=== PATIENT | male | born 1960 | race Caucasian/White ===

== ENCOUNTER 2016-10-10 15:53 | Observation (INO) | payer MEDICARE ==
[~2016-10-10] VITALS: Ht 170.2 cm; Wt 85.4 kg
[2016-10-10] MEDS ORDERED: NEURONTIN600 MG PO (16:24)
[2016-10-10] MEDS ORDERED: HYDRALAZINE HCL25 MG PO (16:24)
[2016-10-10] MEDS ORDERED: FUROSEMIDE20 MG PO (16:25)
[2016-10-10] MEDS ORDERED: NORVASC5 MG PO (16:26)
[2016-10-10] MEDS ORDERED: HYDROCODON-ACE1 EAC9 PO (16:27)
[2016-10-10] MEDS ORDERED: TOUJEO SOL300 UNIT/1 SC (16:28)
[2016-10-10] MEDS ORDERED: METOPROLOL TART25 MG PO (16:32)
[2016-10-10] MEDS ORDERED: BAYER CHEWABLE81 MG PO (16:32)
[2016-10-10 17:20] VITALS: BP 171/82
[2016-10-10 17:24] LABS: HEMATOCRIT 38.8 % (42.0-54.0); HEMOGLOBIN 12.8 g/dL (13.5-17.5); MCH 28.4 pg (26.0-34.0); MEAN PLATELET VOLUME 11.1 fL (7.4-10.4); RBC 4.51 10x6/uL (4.20-6.10); RDW 13.3 % (11.5-14.5); WBC 2.8 10x3/uL (4.8-10.8)
[2016-10-10 17:25] LABS: PLATELET COUNT 124 10x3/uL (130-400)
[2016-10-10 17:47] LABS: ALBUMIN 3.7 g/dL (3.4-5.0); ANION GAP 16.2 mmol/L (8-16); BILIRUBIN - TOTAL 0.3 mg/dL (0.2-1.3); CALCIUM 8.3 mg/dL (8.5-10.1); CARBON DIOXIDE 23.3 mmol/L (21.0-32.0); CREATININE - SERUM 3.8 mg/dL (0.6-1.3); POTASSIUM - SERUM 4.5 mmol/L (3.5-5.1)
[2016-10-10 17:53] LABS: EOSINOPHILS 10 % (0-7); LYMPHOCYTES 46 % (15-50); MONOCYTES 9 % (2-11); NEUTROPHILS 34 % (40-80); PLATELET ESTIMATE DECREASED
--- NOTE | 2016-10-10 18:21 | NUR ---
PT IN BED WITH AT BEDSIDE. IV TO RIGHT FA. PT EATING DINNER. WILL CONTINUE TO MONITOR
[2016-10-10 18:55] LABS: APPEARANCE CLEAR (CLEAR); BILIRUBIN NEGATIVE (NEGATIVE); COLOR YELLOW (YELLOW); GLUCOSE 50 mg/dL (NEGATIVE); KETONE NEGATIVE (NEGATIVE); LEUKOCYTE ESTERASE NEGATIVE (NEGATIVE); NITRITE NEGATIVE (NEGATIVE); PROTEIN 2+ mg/dL (NEGATIVE); SPECIFIC GRAVITY 1.015 (1.005-1.020); UROBILINOGEN NORMAL (NORMAL)
[2016-10-10 18:57] LABS: BACTERIA FEW /hpf (NONE SEEN); EPITHELIAL CELLS 0-5 /hpf (0-5); RED CELLS - URINE 0-5 /hpf (0-5); WHITE CELLS - URINE NSEEN /hpf (0-5)
[2016-10-10 20:00] VITALS: BP 152/59
--- NOTE | 2016-10-10 23:10 | NUR ---
NURSE ROUNDS 21:00 - PT LYING IN BED, AWAKE, ALERT, ORIENTED, DENIES ANY NEEDS. PT DENIES ANY DIARRHEA OR BM SINCE ADMISSION. PT DENIES ANY N/V SINCE ADMISSION. CONTINUE TO MONITOR CLOSELY. BED LOW, CALL LIGHT IN REACH, SIDE RAILS X 2, HOB 25 DEGREES.
--- NOTE | 2016-10-11 00:44 | NUR ---
PT RESTING COMFORTABLY, DENIES ANY NEEDS. CONTINUE TO MONITOR CLOSELY.
[2016-10-11 04:00] VITALS: BP 175/75
--- NOTE | 2016-10-11 07:28 | NUR ---
AM ROUNDS - PT IS AWAKE AND ALERT IN BED. PT STATES HE HAS A NON PRODUCTIVE COUGH. NON SKID SOCKS ON. CALL SANTO IN REACH. SIDE RAILS UP X2. IV IN RIGHT FA, D5 1/2 NS @ 100CC/HR. IV IS VERY POSITIONAL. MONITOR SHOWS SR, HR 56. PT IS ON RA. NO FUTHER NEEDS AT THIS TIME. WILL CONTINUE TO MONITOR
[2016-10-11 08:00] VITALS: BP 159/72
[2016-10-11 08:33] LABS: BASOPHILS 0.7 % (0-2); EOSINOPHILS 13.1 % (0-7); HEMATOCRIT 36.9 % (42.0-54.0); HEMOGLOBIN 12.2 g/dL (13.5-17.5); LYMPHOCYTES 36.4 % (15-50); MCH 28.2 pg (26.0-34.0); MCHC 33.1 g/dL (31.0-37.0); MCV 85.4 fL (80.0-100.0); MEAN PLATELET VOLUME 11.1 fL (7.4-10.4); MONOCYTES 13.4 % (2-11); NEUTROPHILS 36.4 % (40-80); PLATELET COUNT 129 10x3/uL (130-400); RBC 4.32 10x6/uL (4.20-6.10); RDW 13.1 % (11.5-14.5); WBC 3.1 10x3/uL (4.8-10.8)
[2016-10-11 08:53] LABS: ANION GAP 12.9 mmol/L (8-16); CALCIUM 7.8 mg/dL (8.5-10.1); CARBON DIOXIDE 23.5 mmol/L (21.0-32.0); CREATININE - SERUM 3.4 mg/dL (0.6-1.3); POTASSIUM - SERUM 4.4 mmol/L (3.5-5.1)
[2016-10-11 10:19] VITALS: Ht 170.2 cm; Wt 85.4 kg
[2016-10-11 11:14] LABS: ALBUMIN 3.3 g/dL (3.4-5.0); MAGNESIUM - SERUM 2.2 mg/dL (1.8-2.4)
[2016-10-11 11:27] LABS: COMPLEMENT C4 29.3 mg/dL (17.4-52.2)
[2016-10-11 11:40] LABS: BILIRUBIN - TOTAL 0.2 mg/dL (0.2-1.3); CHOL - HDL RATIO 3.6 ratio (2.3-4.9); LDL-HDL RATIO 1.9 ratio (1.5-3.5); PROTEIN - SERUM 6.9 g/dL (6.4-8.2)
[2016-10-11 12:00] VITALS: BP 166/69
[2016-10-11 12:28] LABS: PHOSPHOROUS 3.4 mg/dL (2.5-4.9)
--- NOTE | 2016-10-11 15:44 | NUR ---
SCD'S ON NANCY LE
[2016-10-11 16:00] VITALS: BP 181/76
--- NOTE | 2016-10-11 16:47 | NUR ---
1600 - SCDS PLACED ON PT.
[2016-10-11 16:52] LABS: CREATININE - URINE 40.7 mg/dL (30-125); POTASSIUM - URINE 16.2 MMOL/L (12.0-62.0); PROTEIN - URINE 233.1 mg/dL (0.0-11.9)
[2016-10-11 16:55] LABS: APPEARANCE CLEAR (CLEAR); BILIRUBIN NEGATIVE (NEGATIVE); COLOR YELLOW (YELLOW); GLUCOSE 100 mg/dL (NEGATIVE); KETONE NEGATIVE (NEGATIVE); LEUKOCYTE ESTERASE NEGATIVE (NEGATIVE); NITRITE NEGATIVE (NEGATIVE); PROTEIN 1+ mg/dL (NEGATIVE); UROBILINOGEN NORMAL (NORMAL)
--- NOTE | 2016-10-11 18:13 | NUR ---
PT IS IN RESTING IN BED. FINISHED DINNER. VISITOR AT BEDSIDE. PT HAD AN EPISODE OF NAUSEA EARLIER IN THE DAY, ZOFRAN GIVEN AND SUBSIDED. PT HAS NO NEEDS AT THIS TIME. WILL CONTINUE TO MONITOR
--- NOTE | 2016-10-11 18:50 | NUR ---
BLADDER SCAN SHOWS [id number].
--- NOTE | 2016-10-11 20:47 | NUR ---
PT AWAKE, ALERT, ORIENTED, STATES HIS NAUSEA IS IMPROVED AFTER PRN ZOFRAN AT SHIFT CHANGE. PT REQUESTING RED [place]O, WANTS HIS PRN RESTORIL, REFUSES PRN NORCO AT THIS TIME. CONTINUE TO MONITOR CLOSELY. BED LOW, CALL LIGHT IN REACH, SIDE RAILS X 2, HOB 30 DEGREES.
[2016-10-12] VITALS: BP 171/77
--- NOTE | 2016-10-12 01:35 | NUR ---
PT C/O RECURRENT NAUSEA, PRN ZOFRAN GIVEN. CONTINUE TO MONITOR.
[2016-10-12 04:00] VITALS: BP 167/68
[2016-10-12 07:00] LABS: BASOPHILS 0.9 % (0-2); HEMATOCRIT 34.8 % (42.0-54.0); HEMOGLOBIN 11.3 g/dL (13.5-17.5); LYMPHOCYTES 34.8 % (15-50); MCH 27.9 pg (26.0-34.0); MCHC 32.5 g/dL (31.0-37.0); MCV 85.9 fL (80.0-100.0); MEAN PLATELET VOLUME 11.4 fL (7.4-10.4); MONOCYTES 7.8 % (2-11); NEUTROPHILS 45.5 % (40-80); PLATELET COUNT 115 10x3/uL (130-400); RBC 4.05 10x6/uL (4.20-6.10); RDW 13.2 % (11.5-14.5); WBC 3.5 10x3/uL (4.8-10.8)
--- NOTE | 2016-10-12 07:00 | NUR ---
PT WAS RECEIVED AT THE BEGINNING OF THIS SHIFT IN BED ALERT AND ORIENTED X 4. PT. IS TALKING ABOUT BEING DISCHARGED TODAY. HE IS VERY ANXIOUS ABOUT LEAVING. VITAL SIGNS WNL. CALL LIGHT IN REACH. STABLE CONDITION.
[2016-10-12 07:04] LABS: ANION GAP 13.5 mmol/L (8-16); CALCIUM 7.3 mg/dL (8.5-10.1); CARBON DIOXIDE 22.9 mmol/L (21.0-32.0); CREATININE - SERUM 3.1 mg/dL (0.6-1.3); POTASSIUM - SERUM 4.4 mmol/L (3.5-5.1)
[2016-10-12 07:10] LABS: HEMOGLOBIN A1C 5.7 % (4.8-6.0)
[2016-10-12 08:00] VITALS: BP 179/72
--- NOTE | 2016-10-12 13:06 | NUR ---
PT WAS DISCHARGED AROUND 10:30AM. DISCHARGE PAPERWORK WAS SENT WITH HIM. STABLE CONDITION UPON LEAVING THE HOSPITAL.
--- NOTE | 2016-10-13 09:41 | DS ---
PATIENT:GERMAINE YAO :60 MEDICAL RECORD: [id number] DISCHARGE SUMMARY ADMISSION DATE: 10/10/16 DISCHARGE DATE: 10/12/16 DISCHARGE DIAGNOSES: Ygsyq-so-lkukxdc renal insufficiency stage IV, diabetes mellitus, diabetic retinopathy, diabetic papillopathy, anemia, thrombocytopenia, chronic sinusitis and vertigo due to diabetic neuropathy. HOSPITAL COURSE: A 55-year-old male admitted with significant dizziness, lightheadedness and fatigue. He has had not felt well for a week with upper respiratory symptoms with congestion and diarrhea 9-10 stools a day, which gradually improved without abdominal pain. ____ lightheaded. He denied any tick bites recently. His BUN and creatinine were elevated in the office creatinine over 3.5; baseline of 3.1. It was felt the patient with prerenal was very dizzy and ill-appearing. He was therefore admitted for IV fluids and further workup. On admission, blood pressure is 110/70, his heart rate was 90, and his temperature is 98.1. His sat was 90% on room air. White count was 2800, lymphocytic predominant platelet count 124,000, hemoglobin was 12.8. BUN and creatinine were 48 and 3.8. He was given IV fluids for hydration. Renal ultrasound was performed for his renal insufficiency. A bladder scan was performed. He had 199 cc noted on post-voiding residual. Renal ultrasound revealed slightly increased echogenicity of the renal cortical echotexture and the left ureteral jet could not be visualized easily, but no hydronephrosis was noted. 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 Sinus series showed mild chronic left maxillary sinusitis, but no air fluid level. The bone osseous survey was performed due to the findings with his left humerus. ____ impression that this was typically a bone infarct. This morning, the patient is improved. He is up in the room without dizziness. Blood pressure had been up slightly because he is agitated about being hospitalized. He demands hospital discharge today and promises to have followed up next week. This morning, his H&H is 11.3 and 34.8, white count is up to 3500, 45 neutrophils, 34.8 lymphocytes, and his platelet count is 115,000. BUN and creatinine are down to 40 and 3.1 his baseline. Blood sugars 158. Urine and blood cultures were negative at this time. Cholesterol is 151, triglycerides 149. Rest of his renal workup is pending. The patient will be discharged today in improving condition and to follow with Dr. Alvarado next Friday with a CBC and BMP and follow up with renal, which he agrees to do on an outpatient basis. DISCHARGE MEDICATIONS: Neurontin 600 mg b.i.d., Apresoline 25 mg b.i.d., Lasix 20 mg b.i.d., Norvasc 5 mg q.a.m., [place] 10/300 one t.i.d. p.r.n. back pain, Toujeo 20 units subQ q. evening, metoprolol tartrate 25 mg p.o. b.i.d. He will stop aspirin until his platelet count was resumed to normal. DIET: Renal ADA. ACTIVITY: Progress as tolerated. Return to clinic to see Dr. Alvarado on Friday with CBC, BMP and renal per their order. TRANSINT:[id number] Voice Confirmation ID: [id number] DOCUMENT ID: [id number] DISCHARGE SUMMARY REPORT [id number] GERMAINE YAO TIMOTHY MD at 0941 CC: [id number] DICTATION DATE: 10/12/16 1021 HOP STRAINER: 10/13/16226 DIS IN 10/12/16 [facility] [address] [place] [address]
--- NOTE | 2016-10-13 09:41 | HP ---
PATIENT: GERMAINE YAO MEDICAL RECORD: [id number] ACCOUNT: [id number] LOCATION:[address] : 60 ADMISSION DATE: 10/10/16 HISTORY AND PHYSICAL EXAMINATION REASON FOR ADMISSION: Fever and confusion. HISTORY OF PRESENT ILLNESS: The patient is a 55-year-old male, patient of Dr. Td Recinos, who states that he had not felt well for about a week. He had upper respiratory symptoms of sinus congestion with intermittent nasal drainage and mildly productive cough. He denied fever initially. He states that 3 days ago, he developed diarrhea, having 9 or 10 stools a day, which gradually improved without abdominal pain. He also complained of being very lightheaded when he would stand up. He had had some night sweats without documented fever. He came to the office for this reason today. He had not been in contact with anyone with infectious disease. He denies any recent tick bites. PAST MEDICAL HISTORY: Diabetes mellitus, essential hypertension, insomnia, COPD, was hospitalized in 2014 for acute renal insufficiency, history of class II CHF with EF of 50%, followed by DrVaughn ____, diabetic retinopathy, for which he is nearly blind, diabetic nephropathy and peripheral neuropathy. PAST SURGICAL HISTORY: He had traumatic fracture of his left forearm. FAMILY HISTORY: Negative for CAD. Mother with hypertension. Paternal uncle with atrial fibrillation and hypertension. PERSONAL HISTORY: He is , lives alone, disabled due to poor vision. 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 Continues to smoke cigarettes and has for many years. He does not drink alcohol currently. ALLERGIES: CODEINE, LISINOPRIL, ____, ASACOL. PAST SURGICAL HISTORY: He had a radius open reduction internal fixation in his forearm. MEDICATIONS: Clonidine 0.1 mg b.i.d., Apresoline 25 mg p.o. b.i.d., Lasix 20 mg p.o. q.a.m., Desyrel 100 mg at bedtime for sleep, Iron 100 Plus oral tablet 375 mg p.o. daily, vitamin B12 sublingual 1 daily, ibuprofen 800 mg daily, Norvasc 5 mg daily, Toujeo 10 units subcutaneous at bedtime, hydrocodone 1 q. 6 for back pain, Neurontin 300 mg p.o. t.i.d., aspirin 81 mg daily and pravastatin 20 mg with evening meal. REVIEW OF SYSTEMS: GENERALLY: He has felt poorly for the last 3-4 days. He said he has felt lightheaded when he stands. HEENT: He has chronic visual difficulty. Denies any recent otalgia, photophobia. He has had sinus congestion, frontal sinus pressure-like headache that is not severe. RESPIRATORY: He has had intermittent cough that is nonproductive and had shortness of breath. CARDIAC: No exertional chest pain, claudication, edema, although when he stands, he feels lightheaded. HISTORY AND PHYSICAL [id number] GERMAINE YAO GASTROINTESTINAL: No nausea or vomiting, did have loose stools, significant diarrhea for the last 3 days, improving. Denies melena or bright red blood per rectum. GENITOURINARY: Nocturia once or twice nightly. ENDOCRINE: Denies polyuria, polydipsia, heat or cold intolerance. NEUROLOGIC: No history of stroke, TIA, vascular headaches, or seizures. He has had trouble with chronic neuropathy, numbness involving both of his feet. INTEGUMENT: No rash or itching: PSYCHIATRIC: Denies depressed mood. PHYSICAL EXAMINATION: VITAL SIGNS: In the office, with a blood pressure is 110/70, heart rate of 90 and regular, lying; standing his pressure would drop to 100/60, with heart rate of 100. Temperature 98.1 Fahrenheit orally, respirations 16 and sats 90% on room air. GENERAL: The patient is oriented, but is a poor historian. HEENT: Eyes are clear. Sclerae nonicteric. Oropharynx shows poor dentition. He is constantly chewing and smacking his lips. Ears clear. NECK: No bruits, masses, JVD, or decreased mobility. CHEST: Distant breath sounds on forced expiration. No rales. HEART: Regular rate without MGR. PMI appropriate. ABDOMEN: Soft, nontender. GENITOURINARY: Deferred. EXTREMITIES: No CC&E. NEUROLOGIC: He is oriented to person, place and time. Cranial nerves intact. Gait is normal. PSYCHIATRIC: Denies depressed mood. LABORATORY DATA: White count 2800 with lymphocytic predominance, platelet count 124,000, H&H is 12.8 and 38.8 respectively with an MCV of 86.0, eosinophils were high at 10%. Chemistry showed BUN and creatinine of 48 and 3.8, calcium of 8.3. Liver functions are normal. Potassium is 4.5. Urinalysis is currently pending. Chest x-ray/x-rays are pending. ASSESSMENT: 1. Eghfz-jv-verzdhg renal insufficiency. 2. Recent diarrhea, gastroenteritis. 3. Neutropenia with anemia and thrombocytopenia, etiology unknown. 4. History of hypertension. 5. History of diabetes mellitus. 6. Diabetic neuropathy and retinopathy with near blindness. 7. Nicotine addiction. 8. Chronic obstructive pulmonary disease. PLAN: The patient will be admitted, be cultured and be placed on IV fluids. We will place Mendoza if creatinine is not improving, although he refuses at this time. He denies any recent tick bites; therefore, we will not check rickettsial titers currently. Sliding scale insulin. Further workup pending clinical course. TRANSINT:[id number] Voice Confirmation ID: [id number] DOCUMENT ID: [id number] HISTORY AND PHYSICAL [id number] GERMAINE YAO TIMOTHY MD at 0941 CC: [id number] DICTATION DATE: 10/10/16 1844 SCRAP IRON CUTTER: 10/11/16 1353 DIS IN 10/12/16 [facility] [address] [place] [address]
[2016-10-14 10:12] LABS: ANA REFLEX - DBL STRANDED DNA <1 IU/mL (0-9); ANA REFLEX - DIRECT Negative (Negative)
== END 2016-10-12 13:08 | disposition home or self-care (01) ==
LOC: D.M2 15:53 → OBSVTIME 10-12 09:00 → D.M2 10-12 13:08
PROVIDERS: Internal Medicine; ADMIT Family Medicine
DX: N17.9 Acute kidney failure, unspecified (principal); E11.22 Type 2 diabetes mellitus with diabetic chronic kidney disease; I12.9 Hypertensive chronic kidney disease with stage 1 through stage 4 chronic kidney disease, or unspecified chronic kidney disease; N18.4 Chronic kidney disease, stage 4 (severe); E11.40 Type 2 diabetes mellitus with diabetic neuropathy, unspecified; E11.21 Type 2 diabetes mellitus with diabetic nephropathy; E11.319 Type 2 diabetes mellitus with unspecified diabetic retinopathy without macular edema; J44.9 Chronic obstructive pulmonary disease, unspecified; D61.818 Other pancytopenia; J32.0 Chronic maxillary sinusitis; M89.9 Disorder of bone, unspecified

== ENCOUNTER → 2018-11-30 15:00 | Outpatient (CLI) | payer MEDICARE ==
[2016-10-11 10:19] VITALS: BMI 29.5
[~2018-11-30 15:00] MED LIST: BAYER CHEWABLE81 MG PO; FUROSEMIDE20 MG PO; HYDRALAZINE HCL25 MG PO; HYDROCODON-ACE1 EAC9 PO; METOPROLOL TART25 MG PO; NEURONTIN600 MG PO; NORVASC5 MG PO; TOUJEO SOL300 UNIT/1 SC
== END | disposition home or self-care (01) ==
LOC: D.LAB 15:00
PROVIDERS: ATTEND Family Medicine
DX: R19.7 Diarrhea, unspecified (principal)

== ENCOUNTER 2019-08-24 05:32 | Day surgery (SDC) | payer MEDICARE ==
[~2019-08-24] VITALS: Ht 175.3 cm; Wt 77.1 kg
--- NOTE | ~2019-08-24 | OP ---
PATIENT NAME: GERMAINE YAO MEDICAL RECORD: [id number] :60 LOCATION:[facility] ADMISSION DATE: SURGEON: SUSAN NEIL MD DATE OF OPERATION: 08/24/2019 REFERRING PHYSICIAN: Kyle Hanson MD PREOPERATIVE DIAGNOSES: End-stage renal disease due to diabetic nephropathy, diabetes, hypertension, dependence on hemodialysis and non-maturing left radiocephalic arteriovenous fistula. POSTOPERATIVE DIAGNOSES: End-stage renal disease due to diabetic nephropathy, diabetes, hypertension, dependence on hemodialysis and non-maturing left radiocephalic arteriovenous fistula. OPERATION PERFORMED: Laparoscopy and insertion of a peritoneal dialysis catheter and pexy of the sigmoid colon to the left lower quadrant anterior abdominal wall. SURGEON: Susan Neil MD ANESTHESIA: General endotracheal per GENERAL MAINTENANCE ENGINEER. PREOPERATIVE NOTE: This gentleman has a slow or nonmaturing left arm AV fistula. He is presently on dialysis with a right-sided tunneled dialysis catheter. He wants to do home peritoneal dialysis and he is brought to the operating room at this time to implant a catheter. The patient was not marked preoperatively by peritoneal dialysis nurses. I believe that he has dialysis here [place] [facility] DESCRIPTION OF PROCEDURE: Under anesthesia, the patient was prepped and draped in a sterile manner. A small incision was made in the left upper quadrant and a 5-mm Optiview Xcel port with 5-mm 0-degree laparoscope within it was inserted into the peritoneal space. Pneumoperitoneum was established with carbon dioxide. Examination revealed absence of any significant omentum in the lower abdomen and no adhesions. The patient was found to have very generous sigmoid colon, which filled his pelvis. I measured on the anterior abdominal wall with the abdomen desufflated from the symphysis pubis upward on the right paramedian and identified the site that I wished his deeper Dacron felt cuff to be implanted within the rectus sheath. A vertical incision was made and carried down to the rectus sheath, which was opened and an 18-gauge needle inserted parallel and anterior to the peritoneum for good distance to create a tunnel to direct the catheter downward. A guidewire and peel-away introducer sheath were placed. A Merit flex-neck standard adult-sized dual-cuff coiled catheter was lubricated and placed over a hairspring inspector and then inserted through the peel-away sheath into the abdomen. The catheter passed down into the pelvis quite nicely. There was no bleeding. The rectus sheath was infiltrated with 0.25% Marcaine with epinephrine. The anterior rectus sheath was sutured with a pursestring 0 Vicryl suture to help snug it up around the catheter. The suture was tied carefully so as not to cause any obstruction of flow in the catheter. The catheter was then placed in a subcutaneous tunnel directed upwards and to the right where a skin exit was made in the previously identified site in the right upper quadrant. Blunt dissection was used to create a tunnel, so that the second or superficial Dacron felt cuff passed easily upwards and came to rest OPERATIVE REPORT [id number] GERMAINE YAO about 3 cm from the skin exit. A very nice sized skin exit site was achieved with the use of the Chris tunneler. The catheter was then attached to the transfer set and 1000 cc of saline was run rapidly into the abdomen. The bag was placed on the floor and fluid siphoned out. The patient was placed in a minimal reversed Trendelenburg position, so that fluid would flow into the pelvis and the fluid ran out rapidly. I failed to mention that after inserting the catheter, but before putting it in a subcutaneous tunnel, I did suture an epiploic appendage of the distal sigmoid colon to the anterior abdominal wall in the left lower quadrant to help hold some of the colon up out of the pelvis as I thought this potentially might cause obstruction. This was done with a Juan Diego-Yared suture passer and a 0 Vicryl inserted through a small incision just beneath the incision for the left lower quadrant 5-mm port, which was inserted being needed for instrumentation. The catheter functioning well, it was then heparin locked and the transfer set capped with Betadine MiniCap. The ports were removed and the wounds were infiltrated with 0.25% Marcaine with epinephrine. The smaller incisions were closed with interrupted inverted 3-0 Vicryl subcuticular sutures. The larger incision in the right paramedian, lateral to the umbilicus, was closed with interrupted 3-0 Vicryl and then a running intracuticular 4-0 Stratafix. Dermabond glue sealed all of the wounds, which were then dressed with Maxorb Ag, Tegaderm, and Cavilon skin prep. A BioPatch was placed around the catheter at the exit site. No glue was applied. No sutures were utilized there. The catheter was coiled and covered with a 4 x 4 bordered gauze dressing and the protruding transfer set end was then simply taped down over the bordered gauze dressing. The patient's HemoSplit catheter had been noted to have no suture holding it to the skin by the nurses during the prep and this was exposed and I noted that the insertion site was clean. The Dacron felt cuff seems to be well fixed to the tissues within the tunnel and there was no evidence of sepsis. I did go ahead though and suture the catheter to the skin with a 2-0 Prolene and then another Biopatch and sterile dressing was applied. The patient was at that point awakened and extubated and taken to the recovery room in stable condition. Blood loss throughout was only about 2 cc, was unreplaced. Sponges, instruments, and needles were accounted for. No drain was used and no surgical specimen was submitted for histopathology. PLAN: The patient will go home today and I will have him back to see me in my office next week. He can have his catheter flushed next week and hopefully he will be able to begin peritoneal dialysis training in about 3 weeks. He is given a prescription for Wedron 5/325, 10 tablets. He can take 1 or 2 p.o. every 4 to 6 hours p.r.n. for pain, no refills. He is given my personal cell number in case he should need to get in touch with me before the followup office visit and he is instructed not to bathe or shower, but to keep all of his dressings dry and clean. He is to continue his home medications, insulin, diabetic renal diet and his usual dialysis schedule. TRANSINT:[id number] Voice Confirmation ID: [id number] DOCUMENT ID: [id number] OPERATIVE REPORT [id number] GERMAINE YAO JAMES MD CC: FELIPE SANTACRUZ RN and KYLE HANSON MD [id number] DICTATION DATE: 08/24/19 1055 CAR DESIGNER: 08/24/19 1248 [facility] 08/24/19 [id number] [place] [address]
[2019-08-24 06:17] LABS: ANION GAP 12.8 mmol/L (8-16); BASOPHILS 0.8 % (0-2); CALCIUM 8.6 mg/dL (8.5-10.1); CARBON DIOXIDE 29.5 mmol/L (21.0-32.0); CREATININE - SERUM 4.9 mg/dL (0.6-1.3); EOSINOPHILS 8.4 % (0-7); HEMATOCRIT 38.1 % (42.0-54.0); IMMATURE GRANULOCYTES 0.3 % (0-5); LYMPHOCYTES 23.8 % (15-50); MCH 29.8 pg (26.0-34.0); MCHC 31.5 g/dL (31.0-37.0); MCV 94.5 fL (80.0-100.0); MEAN PLATELET VOLUME 9.8 fL (7.4-10.4); MONOCYTES 10.7 % (2-11); PLATELET COUNT 165 10x3/uL (130-400); POTASSIUM - SERUM 4.3 mmol/L (3.5-5.1); RBC 4.03 10x6/uL (4.20-6.10); RDW 17.8 % (11.5-14.5); WBC 3.9 10x3/uL (4.8-10.8)
[2019-08-24] MEDS ORDERED: BAYER CHEWABLE81 MG PO (06:24)
[2019-08-24] MEDS ORDERED: TRAZODONE HCL300 MG PO (06:24)
[2019-08-24] MEDS ORDERED: BUMEX2 MG PO (06:25)
[2019-08-24] MEDS ORDERED: PRAVACHOL20 MG PO (06:25)
[2019-08-24] MEDS ORDERED: TOUJEO SOL300 UNIT/1 SC (06:38)
[2019-08-24] MEDS ORDERED: HYDRALAZINE HCL25 MG PO (06:41)
[2019-08-24 06:48] LABS: INR 0.9 (0.85-1.17); PROTIME 12.1 SECONDS (11.6-15.0)
[2019-08-24 06:50] VITALS: Ht 175.3 cm; Wt 77.1 kg
--- NOTE | 2019-08-24 09:15 | NUR ---
POSITIVE FOR POINT OF CONTACT FOR OVERNIGHT STAY IN HOSPITAL FACILITY, CLEARED BY WINIFRED WITH INFECTION CONTROL
[2019-08-24] MEDS ORDERED: HYDROCODON-ACE1 EAC7 PO (10:23)
--- NOTE | 2019-08-24 11:30 | NUR ---
PATIENT AMBULATES TO BATHROOM AND VOIDS MODERATE AMOUNT IN TOILET
== END 2019-08-24 11:38 | disposition home or self-care (01) ==
LOC: D.OPS 05:32
PROVIDERS: Surgery; ATTEND Internal Medicine Nephrology
DX: E11.22 Type 2 diabetes mellitus with diabetic chronic kidney disease (principal); I12.0 Hypertensive chronic kidney disease with stage 5 chronic kidney disease or end stage renal disease; N18.6 End stage renal disease; Z99.2 Dependence on renal dialysis; E11.40 Type 2 diabetes mellitus with diabetic neuropathy, unspecified

== ENCOUNTER → 2019-09-08 14:19 | Outpatient (CLI) | payer MEDICARE ==
[2019-08-24 06:50] VITALS: BMI 25.1
[~2019-09-08 14:19] MED LIST changes: +BUMEX2 MG PO; +HYDROCODON-ACE1 EAC7 PO; +PRAVACHOL20 MG PO; +TRAZODONE HCL300 MG PO
== END | disposition home or self-care (01) ==
LOC: D.RAD 14:19
PROVIDERS: ATTEND Family Medicine
DX: Z98.890 Other specified postprocedural states (principal)